=== PATIENT | male | born 1960 | race Caucasian/White ===

== ENCOUNTER 2020-03-22 06:26 | Inpatient (IN) ==
[~2020-03-22 06:26] MED LIST: MORPHINE SULFATE 15 MG TABLET.SA PO PRN; ROPIVACAINE HCL/PF 100 MG, EPINEPHrine 0.2 MG, KETOROLAC TROMETHAMINE 30 MG in NORMAL S... IJ PRN; TRANEXAMIC ACID 1,000 MG in NORMAL SALINE 100 ML IV PRN; ceFAZolin SODIUM 1 GM VIAL IV PRN
[2020-03-22] MEDS ORDERED: ISOPROPYL ALCOHOL 480 APPL BTL MC ONE (06:33)
[2020-03-22] MEDS ORDERED: ceFAZolin SODIUM 1 GM VIAL ONE (06:33)
[2020-03-22] MEDS ORDERED: LIDOCAINE HCL 20 ML VIAL ONE (07:07)
[2020-03-22] MEDS ORDERED: BUPIVACAINE HCL/EPINEPHRINE 50 ML VIAL IJ ONE (07:07)
[2020-03-22] MEDS ORDERED: MIDAZOLAM HCL/PF 5 MG/ML VIAL ONE (07:08)
[2020-03-22] MEDS ORDERED: BUPIVACAINE HCL/PF 10 ML VIAL ONE (07:08)
[2020-03-22] MEDS ORDERED: EPINEPHrine 1 MG/ML AMPUL ONE (07:08)
[2020-03-22] MEDS ORDERED: PROPOFOL VIAL IV ONE (07:08)
[2020-03-22] MEDS: RINGER'S SOLUTION,LACTATED 1,000 ML IV PRN ×3 (07:13→10:51)
--- NOTE | 2020-03-22 07:35 | ANES ---
Anesthesia Pre Procedure Eval Vitals/Labs: Last Vital Signs Temp 36.7 C 03/22/20 06:41 Pulse 85 03/22/20 06:41 Resp 18 03/22/20 06:41 BP 127/82 03/22/20 06:41 Pulse Ox 97 03/22/20 06:41 HOME MEDICATIONS albuterol sulfate 90 mcg/actuation aerosol inhaler 2 inh IH Q8H PRN 01/22/20 [Last Taken Unknown] amlodipine 10 mg tablet 10 mg PO BID tab 01/22/20 [Last Taken 03/22/20 05:00] aspirin 81 mg tablet,delayed release 81 mg PO DAILY 01/22/20 [Last Taken 03/15/20] buspirone 15 mg tablet 15 mg PO BID 01/22/20 [Last Taken Unknown] ferrous sulfate 325 mg (65 mg iron) tablet 325 mg PO DAILY 01/22/20 [Last Taken 03/15/20] gabapentin 300 mg capsule 900 mg PO TID cap 01/22/20 [Last Taken 02/09/20 07:00] hydrocodone 5 mg-acetaminophen 325 mg tablet 1 tab PO BID PRN 01/22/20 [Last Taken Unknown] irbesartan 150 mg tablet 150 mg PO DAILY 01/22/20 [Last Taken Unknown] metoprolol tartrate 50 mg tablet 50 mg PO DAILY 01/22/20 [Last Taken 03/22/20 05:00] omeprazole 40 mg capsule,delayed release 40 mg PO DAILY 01/22/20 [Last Taken Unknown] quetiapine 200 mg tablet 200 mg PO DAILY 01/22/20 [Last Taken Unknown] Atorvastatin Calcium 40 mg PO HS 03/22/20 [Last Taken Unknown] Ezetimibe [Zetia] 10 mg PO HS 03/22/20 [Last Taken Unknown] Allergies/Adverse Reactions: Allergies Allergy/AdvReac Type Severity Reaction Status Date / Time No Known Allergies Allergy Verified 03/22/20 06:48 - Planned Procedure Planned Procedure: Left Total Knee Revision Medication List Reviewed:: Yes Allergies Verified: Yes Medical History (Last Reviewed 03/22/20 @ 07:34 by Ang Maxwell CRNA) Hypertension Onset Date: Unknown Pain in joints Onset Date: Unknown Surgical History (Last Reviewed 03/22/20 @ 07:34 by Ang Maxwell CRNA) History of skin graft Onset Date: 1979 History of splenectomy Onset Date: ~1977 History of total left knee replacement Onset Date: 02/2019 Dr. Pope Family History (Last Reviewed 03/22/20 @ 07:34 by Ang Maxwell CRNA) Mother Cancer - Family Anesthesia History Family History:: no untoward family reactions to anesthesia - Airway/Neck/Teeth Within Normal Limits:: Yes Denture Type: None Neck Exam: full range of motion Mallampatti Score: 2 Thyromental (T-M) distance: > 6 cm Mandibulo Hyoid distance: > 3 cm - Respiratory Respiratory History: asthma Respiratory Physical: lungs clear Smoking Status: Current every day smoker Discussed smoking cessation including day of surgery: Yes Sleep Apnea currently treated: No Sleep Apnea by current assessment: No - Cardiovascular Cardiac History: hypertension, hyperlipidemia Tolerate Activity: Fair Heart Sounds: S1 & S2, Regular - Gastrointestinal NPO since: MN - Anesthesia Assessment and Plan ASA Class: PS, II Anesthesia Type Plan: Spinal - adductor canal block Planned difficult intubation/equipment available: No
--- NOTE | 2020-03-22 10:45 | OR ---
Operative Report - Dictated Report Narrative: DATE OF PROCEDURE: 03/22/2020 PHYSICIAN: Huseyin Pop MD GARAGE DOOR HANGER: Jhonathan Hurt MD (provided an educated set of skilled hands that consisted with transfer, positioning, prepping, draping, traction, manipulation, irrigation, placement of implants, placement of instruments, closure of wounds, application of dressings, all of which could not be performed by the available surgical crew). 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 ANESTHESIA: Spinal plus regional plus periarticular local. ESTIMATED BLOOD LOSS: Minimal TOURNIQUET TIME: 120 minutes at 300 mmHg. SPECIMENS: Implants for disposal, tissue for acute inflammation, culture x1. COMPLICATIONS: None. RETAINED IMPLANTS: DePuy Attune revision CRS size 7 left femur cemented, 4 mm distal medial augment, 8 mm distal medial, posterior medial, and posterior lateral augments attune revision press-fit stem 16 x 60 mm, attune revision porocoat fully coated femoral sleeve 30 mm, size 6 revision tibial baseplate rotating platform, revision tibial sleeve Porocoat fully coated 29 mm, revision press-fit stem 12 mm x 60 mm, CRS revision rotating platform insert size 7 x 12 mm crosslinked polyethylene. INDICATIONS FOR PROCEDURE: Mr. Santos is a 59-year-old gentleman who underwent a left total knee arthroplasty in the past at an outside facility. He did not have his patella resurfaced and noted pain for a prolonged amount of time postoperatively. He was seen in clinic and found to have an undersurface patella with noted arthropathy as well as an oversized appearing malaligned tibial component and some concern for loosening of his implants at the cement interface. He had an aspirate, which was negative for infection and had x-rays that showed some signs of implant loosening; as well as malalignment of the tibial component. Options for treatment were discussed including bracing, observation, and surgical revision. He wished to proceed with revision. The risks, benefits, and alternatives were discussed in clinic. The risk of , blood clots, bleeding, infection, nerve/tendon/blood vessel injury, malposition of implants, persistent pain, failure of implants, loosening, stiffness, need f or additional procedures, and she wished to proceed. Consent was obtained in the clinic. PROCEDURE: After marking the correct extremity in the preoperative holding area, the patient was taken to the operating room. A timeout was performed. IV antibiotics consisting of Ancef was administered prior to procedure. A regional followed by spinal anesthetic was induced at my request by anesthesia. A Portillo catheter was placed and a bump was placed under the left buttock. A well-padded tourniquet was applied to the left thigh. Left leg was then prepped and draped in standard sterile fashion. He had good range of motion from 0 to 130 degrees but was noted to have varus alignment however no excessive coronal instability. After prepping and draping the leg in standard sterile fashion, exsanguinating the extremity and inflating the tourniquet to 300 mmHg, a previous anterior incision was excised over a length of 20 cm. Sharp dissection was carried through the skin. There were retained no nonabsorbable sutures. The medial retinaculum was marked out and a paramedial arthrotomy was made. There was notable effusion, but no gross signs of purulence or infectious appearing tissues. A partial synovectomy was performed. The scar tissue was excised. The gutters were cleaned, and the previous polyethylene was excised. The knee was hyperflexed and attention was turned to the femur. A series of osteotomes were utilized in order to disengage the cement bone implant interface, removing the femoral component. We then turned our attention to the tibia. A series of osteotomes and saw was utilized in order to free the tissue to best of our abilities. The tibia was then removed. The implants revealed no signs of significant wear or damage. The implants were fairly easy to remove and disengaged from the cement with minimal retained cement on the femur bone and minimal retained cement on the tibial component. We then proceeded to prepare the tibia. The entry reamer up to a size 12 tibial reamer was utilized in order to repair the tibial canal. An entry reamer for the implant as well as a 29mm broach was utilized which gave good stability with good fill of the proximal tibial metaphysis. The proximal tibia was then cleaned and cut in order to provide a flat surface. It was noted that the tibial component was oversized and medially translated and noted varus. The trial tray size 6 was then impacted with the trial sleeve and this was secured with a punch. Once it was felt that we prepared the tibia, we turned our attention to the femur. A series of reamers were utilized in order to open up the femoral canal up to a size 16. The femoral sleeve with broach was utilized up to a size 30mm. A clean-up distal cut was made, followed by the 3-in-1 cutting block, which was placed under tension in both flexion and extension in order to make sure that we had a symmetrical box. This was pinned in slight external rotation. Clean-up cuts were then made for augment, 4 mm distal medial and 8 mm posterior medial and lateral. The trial components were assembled and impacted for trial. A series of inserts were utilized up to a size 12, which gave good stability in flexion and was able to reach maximal extension without hyperextension, stable to varus and valgus stressing as well as drawer. The patella tracked appropriately and overall, however this was noted to have advanced arthrosis and had not been resurfaced. Per our preoperative discussion the patella was resurfaced. Initial thickness was 24 mm it was reamed down to 14 mm. A 35 mm button was utilized. The implants were removed. The tissue was thoroughly irrigated with pulsatile saline irrigation. Prior to this, the tissue was sent to pathology for acute inflammation, was noted to have less than 5 neutrophils per high-powered field, and culture was also obtained and sent to pathology. Once the bone was thoroughly irrigated and dried, a periarticular joint injection of ropivacaine, Toradol, and epinephrine was placed. The cement was vacuum mixed per cotton broker's instructions. The implants were assembled on the back table, and cement was placed on the appropriate surfaces, avoiding any cement on the ingrown surface or the stems, and the implants were then impacted. Once the cement was fully cured, the extruded cement was removed. The final polyethylene insert was placed. The knee was again placed through range of motion and was able to reach full extension, flexion 130 degrees with appropriate tracking of the patella, and no instability. A drain was placed exiting superolaterally. The tourniquet was deflated. Hemostasis was obtained. Capsule was closed with interrupted #1 Vicryl. The deep tissues with 0 Vicryl, subcutaneous tissue with 3-0 Vicryl and 3-0 Monocryl, and the skin with a Dermabond dressing. A 4 x 4s, Sof-Rol and a full leg Don was applied and the patient was awoken and transferred to postanesthesia care unit in stable condition. All sponge, needle, and instrument counts were correct prior to closing the wounds.
[2020-03-22] MEDS ORDERED: diphenhydrAMINE HCL 50 MG/ML VIAL IV PRN (10:46)
[2020-03-22] MEDS ORDERED: ONDANSETRON HCL/PF 2 MG/ML VIAL IV PRN (10:46)
[2020-03-22] MEDS ORDERED: MAGNESIUM HYDROXIDE 30 ML UDC PO PRN (10:46)
[2020-03-22] MEDS ORDERED: MAG HYDROX/ALUMINUM HYD/SIMETH 30 ML UDC PO PRN (10:46)
[2020-03-22] MEDS ORDERED: ACETAMINOPHEN 500 MG TABLET PO PRN (10:46)
[2020-03-22] MEDS ORDERED: MORPHINE SULFATE 2 MG/ML DISP.SYRIN IV PRN (10:46)
[2020-03-22] MEDS ORDERED: ZOLPIDEM TARTRATE 5 MG TABLET PO PRN (10:46)
[2020-03-22] MEDS ORDERED: DEXTROSE 5%-LACTATED RINGERS 1,000 ML IV PRN (10:46)
[2020-03-22] MEDS ORDERED: ALBUTEROL SULFATE 2.5 MG/0.5 ML VIAL.NEB IH PRN (10:48)
--- NOTE | 2020-03-22 11:19 | ANES ---
Post Anesthesia Discharge - Transfer of Care Transfer of Care handoff given to nurse: Yes - Discharge from PACU Discharge from PACU when meets criteria: Yes
--- NOTE | 2020-03-22 11:23 | ANES ---
Anesthesia Procedure Note Procedure Note: ANESTHESIA PROCEDURE NOTE Date of procedure: 03/22/2020. Time of procedure: 50. Performed by: Urban Maxwell CRNA Auto Damage Trainee: Jennifer Williamson RN . Preprocedure diagnosis: Left knee pain. Status post left total knee arthroplasty. Unstable implant. Post procedure diagnosis: Same. Procedure: Ultrasound-guided left adductor canal Indications: Postoperative analgesia. Findings: Patient brought to operating room #4 and given a spinal anesthetic. The patient's left inner thigh was prepped with ChloraPrep. Ultrasound utilized to identify the saphenous nerve in the left adductor canal. A 20-gauge 4 inch regional block needle was advanced under ultrasound guidance until tip of needle was placed just distally to sartorius muscle fascial layer. 30 mL of 0.25% Marcaine with epinephrine 1 200,000 was injected with adequate spread of local anesthesia noted. Regional block needle was removed intact. EBL: Minimal. Fluids: N/A. Specimen: N/A. Post procedure condition: The patient tolerated the procedure well. No complications were noted. Thank you for this consultation Urban Maxwell CRNA
[2020-03-22] MEDS: KETOROLAC TROMETHAMINE 15 MG/ML VIAL IV SCH ×3 (11:56→22:55)
[2020-03-22] MEDS: ceFAZolin SODIUM 1 GM in DEXTROSE 5 % IN WATER 100 ML IV SCH ×4 (11:58→18:30)
--- NOTE | 2020-03-22 12:12 | ANES ---
Post Anesthesia Assessment - Vital Signs Vitals: Last Vital Signs Temp 37.1 C 03/22/20 11:39 Pulse 69 03/22/20 11:39 Resp 20 03/22/20 11:39 BP 131/71 03/22/20 11:35 Pulse Ox 93 03/22/20 11:39 Airway Patency: Normal - Mental Status Level Of Consciousness: Awake - Pain Level Pain Score: 0 - N/V Assessment Nausea/Vomiting Presence: None Dehydration:: No
[2020-03-22] MEDS: oxyCODONE HCL/ACETAMINOPHEN 1 TAB TABLET PO PRN ×2 (12:25→16:42)
[2020-03-22] MEDS ORDERED: GABAPENTIN 300 MG CAPSULE PO SCH (13:00)
[2020-03-22] MEDS: amLODIPine BESYLATE 10 MG TABLET PO SCH (20:20)
[2020-03-22] MEDS: busPIRone HCL 5 MG TABLET PO SCH (20:20)
[2020-03-22] MEDS: MORPHINE SULFATE 15 MG TABLET.SA PO SCH (20:27)
[2020-03-22] MEDS ORDERED: ROSUVASTATIN CALCIUM 20 MG TABLET PO SCH (21:00)
[2020-03-22] MEDS ORDERED: SENNOSIDES/DOCUSATE SODIUM 1 TAB TABLET PO SCH (21:00)
[2020-03-22] MEDS ORDERED: EZETIMIBE 10 MG TABLET PO SCH (21:00)
[2020-03-23] MEDS: ceFAZolin SODIUM 1 GM in DEXTROSE 5 % IN WATER 100 ML IV SCH ×2 (00:45)
[2020-03-23] MEDS: KETOROLAC TROMETHAMINE 15 MG/ML VIAL IV SCH ×2 (04:11→10:29)
[2020-03-23] MEDS: oxyCODONE HCL/ACETAMINOPHEN 1 TAB TABLET PO PRN ×2 (04:51→10:35)
[2020-03-23 06:32] LABS: Mean Corpuscular Hemoglobin 30.2 pg (27-31); Mean Corpuscular Hgb Conc 32.5 g/dl (32-36); Mean Platelet Volume 9.4 fl (8-11.3); Platelet Count 323 K/mm3 (150-450); Red Cell Distribution Width 13.4 % (11.5-14.0)
[2020-03-23 06:37] LABS: Anion Gap 10.1 mmol/L (6.8-13.8); BUN/Creatinine Ratio 10.7 (9.0-21.6); Calcium * 8.4 mg/dL (7.9-10.9); Carbon Dioxide 25.8 mmol/L (24-32.6); Estimated Creat Clear 61.3; Potassium 3.9 mmol/L (3.4-4.6)
[2020-03-23] MEDS ORDERED: PANTOPRAZOLE SODIUM 40 MG TABLET.EC PO SCH (07:00)
[2020-03-23] MEDS: busPIRone HCL 5 MG TABLET PO SCH (08:07)
[2020-03-23] MEDS: amLODIPine BESYLATE 10 MG TABLET PO SCH (08:08)
[2020-03-23] MEDS: MORPHINE SULFATE 15 MG TABLET.SA PO SCH (08:11)
[2020-03-23] MEDS ORDERED: QUEtiapine FUMARATE 100 MG TABLET PO SCH ×2 (09:00→21:00)
[2020-03-23] MEDS ORDERED: METOPROLOL TARTRATE 50 MG TABLET PO SCH (09:00)
[2020-03-23] MEDS ORDERED: FERROUS SULFATE 325 MG TABLET PO SCH (09:00)
[2020-03-23] MEDS ORDERED: LOSARTAN POTASSIUM 50 MG TABLET PO SCH (09:00)
[2020-03-23] MEDS ORDERED: ENOXAPARIN SODIUM 40 MG/0.4 ML SYRG SC SCH (09:46)
--- NOTE | 2020-03-23 12:05 | DS ---
Date of Discharge:: 03/23/20 Hospital Course: Mr. Santos was admitted to the floor after undergoing revision left total knee arthroplasty. Tolerated this well. Was admitted to the floor postoperatively for 24 hours of IV antibiotics, pain control, medical comanagement, and occupational and physical therapy. OT and PT were consulted to assist with activities of daily living and ambulation. Was made weightbearing as tolerated with range of motion as tolerated. Pain was initially controlled with IV regimen. This was transitioned to oral once tolerating a by mouth intake. Was resumed on home diet and medications. Had a Portillo catheter inserted and the operating room which was discontinued on postoperative day 1. A drain was placed intraoperatively into the knee which was discontinued on postoperative day 1. Lovenox SCD and ARLEY hose were utilized for DVT prophylaxis. Vital signs remained stable to the hospital course. Serial labs were obtained which showed a final hemoglobin of 13.0 grams. BMP was reviewed and was stable. Physical examination throughout the hospital course showed an extremity that had sensation that was intact to light touch, palpable pulses, a benign wound, motor intact to the toes, ankle, and knee. Knee range of motion was approximately 0 degrees to 75 degrees. Once an oral pain regimen was tolerated and physical therapy goals were met, it was felt that they were stable for discharge to home. Instructions: Continue with weightbearing as tolerated and range of motion as tolerated. It is OK to shower on the wound if it is not draining. If you note any drainage or for comfort you can cover with dry gauze and tape. Change every 2-3 days as needed. Continue with physical therapy. Resume home diet. Report any fever over 101.5 Fahrenheit, uncontrolled pain, increased drainage, foul odor of drainage, new or increased calf pain or shortness of breath, or any other significant complaints. A 325mg dialy aspirin will be started after finishing anticoagulation if not allergic. Continue with ARLEY hose on the operative extremity until instructed otherwise. No driving until instructed otherwise. Follow up in approximately 10-14 days. Procedures Performed: see notes below List Procedures: Revision left total knee arthroplasty Results and Findings: Pending Mircobiology Results 03/22/20 10:26 Knee - Left Miscellaneous Culture - Preliminary Ruling Out Pathogen Lab Pending Results 03/22/20 08:25: Pathology Specimen Spec to path 03/23/20 06:23: WBC 10.0, RBC 4.30 L, Hgb 13.0 L, Hct 40.0 L, MCV 93.0, MCH 30.2, MCHC 32.5, RDW 13.4, Plt Count 323, MPV 9.4 03/23/20 06:23: Sodium 137, Plasma Sodium 137, Potassium 3.9, Chloride 105, Carbon Dioxide 25.8, Anion Gap 10.1, BUN 14, Creatinine 1.31, Est GFR (Non-Af Amer) 60, BUN/Creatinine Ratio 10.7, Random Glucose 114 H, Calcium 8.4 Discharge Location: Home Disposition: Home self-care Condition: Good Discharge Activity: Activity as tolerated, Weight bearing, Other - With wheeled walker Discharge Diet: Low salt, Low fat/chol Referrals: Isabell Vyas APRN [Primary Care Provider] - Huseyin Pop MD [Staff Physician] - 04/06/20 10:45 am Additional Patient Instructions (free text): Physical Therapy at [facility] in [place] on SundayMarch 24 at 9:00am. Please fax PT order to fax #[phone]. Follow up Orthopedic office appointment on SundayApril 06 at 10:45am. Prescriptions (Any new or edited meds): Enoxaparin Sodium [Lovenox] 40 mg SC Q24H #7 disp.syrin Transmission Status: Pending to [facility] #[id number] Morphine Sulfate [Ms Contin] 15 mg PO Q12H #20 tablet.sa Transmission Status: Received by [facility] #[id number] oxyCODONE HCL/ACETAMINOPHEN [Percocet 5 MG/325 MG] 2 tab PO Q4H PRN #56 tab PRN Reason: Moderate Pain (Pain Scale 4-6) Transmission Status: Received by [facility] #[id number] Sennosides/Docusate Sodium [Senokot-S] 2 tab PO HS #30 tab Transmission Status: Pending to [facility] #[id number] Complete Home Medications List: Complete Home Medication List: albuterol sulfate 90 mcg/actuation aerosol inhaler 2 inh IH Q8H PRN 01/22/20 amlodipine 10 mg tablet 10 mg PO BID tab 01/22/20 aspirin 81 mg tablet,delayed release 81 mg PO DAILY 01/22/20 buspirone 15 mg tablet 15 mg PO BID 01/22/20 ferrous sulfate 325 mg (65 mg iron) tablet 325 mg PO DAILY 01/22/20 gabapentin 300 mg capsule 900 mg PO TID cap 01/22/20 irbesartan 150 mg tablet 150 mg PO DAILY 01/22/20 metoprolol tartrate 50 mg tablet 50 mg PO DAILY 01/22/20 omeprazole 40 mg capsule,delayed release 40 mg PO DAILY 01/22/20 quetiapine 200 mg tablet 200 mg PO DAILY 01/22/20 Atorvastatin Calcium 40 mg PO HS 03/22/20 Ezetimibe [Zetia] 10 mg PO HS 03/22/20 Enoxaparin Sodium [Lovenox] 40 mg SC Q24H #7 disp.syrin 03/23/20 Morphine Sulfate [Ms Contin] 15 mg PO Q12H #20 tablet.sa 03/23/20 Sennosides/Docusate Sodium [Senokot-S] 2 tab PO HS #30 tab 03/23/20 oxyCODONE HCL/ACETAMINOPHEN [Percocet 5 MG/325 MG] 2 tab PO Q4H PRN #56 tab 03/23/20 Amb Orders for Discharge: PT Evaluation and Treatment* Facility: [facility], Location: Rehabilitation Services Forms: Patient Portal Registration
[2020-03-23 13:41] VITALS: BP 133/73
== END 2020-03-23 14:05 | disposition home or self-care (01) | DRG 468 ==
LOC: MS 06:26
PROVIDERS: ADMIT Orthopaedic Surgery; ATTEND Orthopaedic Surgery
DX: J45.909 Unspecified asthma, uncomplicated; I10 Essential (primary) hypertension; Y83.8 Other surgical procedures as the cause of abnormal reaction of the patient, or of later complication, without mention of misadventure at the time of the procedure; E78.5 Hyperlipidemia, unspecified; F32.9 Major depressive disorder, single episode, unspecified; Y79.2 Prosthetic and other implants, materials and accessory orthopedic devices associated with adverse incidents; G89.29 Other chronic pain; T84.033A Mechanical loosening of internal left knee prosthetic joint, initial encounter; E78.00 Pure hypercholesterolemia, unspecified; R73.03 Prediabetes
CPT/HCPCS: 36415; 73560; 80048; 85027; 87070; 88305; 88331; 88332; 88888; 97110; 97116; 97161; 97165